=== PATIENT | female | born 1985 | race Caucasian/White ===

== ENCOUNTER 2017-08-16 23:16 | Emergency (ER) | payer OTHER ==
[~2017-08-16] VITALS: Ht 170.2 cm; Wt 135.4 kg
[~2017-08-16 23:16] MED LIST: MAGN400T6 PO; PRENTAB26 PO; VNTHFA/IN INH
[2017-08-16 23:30] VITALS: TEMP 36.9; Ht 170.2 cm; Wt 135.4 kg
[2017-08-17 00:08] LABS: BASO % 0.1 %; BASO ABS # 0.01 K/uL (0-0.2); EOS % 0.8 %; EOS ABS # 0.09 K/uL (0-0.5); HEMATOCRIT 36.3 % (37-47); HEMOGLOBIN 12.4 g/dL (12.0-16.0); IG# 0.03 K/uL (0.00-0.02); LYMPH % 26.9 %; LYMPH ABS # 2.95 K/uL (1.2-3.4); MEAN CELL VOLUME 89.6 fL (80-100); MEAN CORPUSCULAR HEMOGLOBIN 30.6 pg (25-34); MEAN CORPUSCULAR HGB CONC 34.2 g/dl (32-36); MEAN PLATELET VOLUME 10.2 fL (7.4-10.4); MONO % 4.8 %; MONO ABS # 0.53 K/uL (0.11-0.59); NEUT % 67.1 %; NEUT ABS # 7.35 K/uL (1.4-6.5); PLATELET COUNT 224 K/uL (130-400); RED CELL DISTRIBUTION WIDTH CV 14.2 % (11.5-14.5); RED CELL DISTRIBUTION WIDTH SD 46.3 fL (36.4-46.3); WHITE BLOOD COUNT 10.96 K/uL (4.8-10.8)
[2017-08-17 00:29] LABS: ALBUMIN 3.3 gm/dl (3.4-5.0); ALT/SGPT 28 U/L (12-78); AST/SGOT 13 U/L (15-37); BLOOD UREA NITROGEN 12 mg/dl (7-18); CALCIUM 8.8 mg/dl (8.5-10.1); CARBON DIOXIDE 28 mmol/L (21-32); GLUCOSE 144 mg/dl (70-99); POTASSIUM 3.8 mmol/L (3.5-5.1); SODIUM 138 mmol/L (136-145)
[2017-08-17 00:33] LABS: ALKALINE PHOSPHATASE 73 U/L (45-117); TOTAL PROTEIN 7.3 gm/dl (6.4-8.2)
[2017-08-17] MEDS ORDERED: ESCI1TAB10 PO (00:47)
[2017-08-17 01:08] VITALS: BP 149/103; PULSE 95; O2SAT 97
--- NOTE | 2017-08-17 01:13 | EMERGENCY ROOM VISIT NOTE ---
History First contact with patient: 23:35 Chief Complaint: SHOULDER PAIN Stated Complaint: TINGLING IN ARMS,SHOULDER, LEGS,ANXIETY History of Present Illness The patient is a 32 year old female who presents to the Emergency Room with multiple complaints. The patient reports that she has had nausea on and off for the past 1 week. She has additionally had frequent heartburn as well as tingling in both of her arms. She states that she has had some heaviness in both her arms or legs. The patient's symptoms have all been intermittent for the past 1 week. She states that tonight she felt very cold and had some pain in the left shoulder blade. She reports she has been more fatigued than normal. She denies shortness of breath, chest pain, fevers, headache or neck pain. She rates her overall discomfort a 2/10. She denies any new medications or changes in her medications. Her last menstrual period was approximately 5 weeks ago. She is not a smoker. She does not take control pills. She denies recent travel. Review of Systems A complete 10 point review of systems was reviewed with the patient with pertinent positives and negatives as per history of present illness. All else were negative. Past Medical/Surgical History Medical Problems: (1) Appendectomy (2) Bipolar disorder (3) Cramping affecting , antepartum (4) Gastroesophageal reflux disease (5) [place] Teeth Removal Social History Smoking Status: Never Smoker Alcohol Use: none Drug Use: none Marital Status: single Housing Status: lives with family Occupation Status: unemployed Current/Historical Medications Scheduled Escitalopram Oxalate (Lexapro), 20 MG PO DAILY Physical Exam Vital Signs Date Time Temp Pulse Resp B/P (MAP) Pulse Ox O2 Delivery O2 Flow Rate FiO2 08/17/17 01:08 95 16 149/103 97 Room Air 08/17/17 01:08 93 20 141/92 97 Room Air 08/16/17 23:30 36.9 113 20 98 Room Air Physical Exam VITALS: Vitals are noted on the nurse's note and reviewed by myself. Vital signs stable. GENERAL: This is a 32-year-old female, in no acute distress, nondiaphoretic, well-developed well-nourished. SKIN: The skin was without rashes. HEAD: Normocephalic atraumatic. EARS: External auditory canals clear, tympanic membranes pearly gerber without erythema or effusion bilaterally. EYES: Pupils equal round and reactive to light and accommodation. Extraocular movements intact. MOUTH: Mucous membranes moist. Tonsils are not enlarged. Pharynx without erythema or exudate. NECK: Supple without nuchal rigidity. No lymphadenopathy. HEART: Regular rate and rhythm without murmurs gallops or rubs. LUNGS: Clear to auscultation bilaterally without wheezes, rales or rhonchi. MUSCULOSKELETAL: Full range of motion throughout. Strength 5/5 throughout. NEURO: Patient was alert and oriented to person place and time. Normal sensation to light and sharp touch. No focal neurological deficits. Medical Decision & Procedures ER Provider Diagnostic Interpretation: CHEST 1 VIEW: No acute cardiopulmonary abnormality. Per my interpretation Laboratory Results 08/16/17 23:55 Red Blood Count 4.05, Mean Corpuscular Volume 89.6, Mean Corpuscular Hemoglobin 30.6, Mean Corpuscular Hemoglobin Concent 34.2, Mean Platelet Volume 10.2, Neutrophils (%) (Auto) 67.1, Lymphocytes (%) (Auto) 26.9, Monocytes (%) (Auto) 4.8, Eosinophils (%) (Auto) 0.8, Basophils (%) (Auto) 0.1, Neutrophils # (Auto) 7.35, Lymphocytes # (Auto) 2.95, Monocytes # (Auto) 0.53, Eosinophils # (Auto) 0.09, Basophils # (Auto) 0.01 08/16/17 23:55 Test 08/16/17 23:55 White Blood Count 10.96 K/uL (4.8-10.8) Red Blood Count 4.05 M/uL (4.2-5.4) Hemoglobin 12.4 g/dL (12.0-16.0) Hematocrit 36.3 % (37-47) Mean Corpuscular Volume 89.6 fL (80-100) Mean Corpuscular Hemoglobin 30.6 pg (25-34) Mean Corpuscular Hemoglobin Concent 34.2 g/dl (32-36) Platelet Count 224 K/uL (130-400) Mean Platelet Volume 10.2 fL (7.4-10.4) Neutrophils (%) (Auto) 67.1 % Lymphocytes (%) (Auto) 26.9 % Monocytes (%) (Auto) 4.8 % Eosinophils (%) (Auto) 0.8 % Basophils (%) (Auto) 0.1 % Neutrophils # (Auto) 7.35 K/uL (1.4-6.5) Lymphocytes # (Auto) 2.95 K/uL (1.2-3.4) Monocytes # (Auto) 0.53 K/uL (0.11-0.59) Eosinophils # (Auto) 0.09 K/uL (0-0.5) Basophils # (Auto) 0.01 K/uL (0-0.2) RDW Standard Deviation 46.3 fL (36.4-46.3) RDW Coefficient of Variation 14.2 % (11.5-14.5) Immature Granulocyte % (Auto) 0.3 % Immature Granulocyte # (Auto) 0.03 K/uL (0.00-0.02) D-Dimer 370 ug/L FEU (0-500) Urine Color YELLOW Urine Appearance CLEAR (CLEAR) Urine pH 5.5 (4.5-7.5) Urine Specific [place] 1.021 (1.000-1.030) Urine Protein NEG (NEG) Urine Glucose (UA) NEG (NEG) Urine Ketones NEG (NEG) Urine Occult Blood NEG (NEG) Urine Nitrite NEG (NEG) Urine Bilirubin NEG (NEG) Urine Urobilinogen NEG (NEG) Urine Leukocyte Esterase NEG (NEG) Urine Test NEG (NEG) Anion Gap 5.0 mmol/L (3-11) Est Creatinine Clear Calc Drug Dose 145.2 ml/min Estimated GFR () 113.1 Estimated GFR (Non- 97.6 BUN/Creatinine Ratio 15.4 (10-20) Calcium Level 8.8 mg/dl (8.5-10.1) Total Bilirubin 0.2 mg/dl (0.2-1) Aspartate Amino Transf (AST/SGOT) 13 U/L (15-37) Alanine Aminotransferase (ALT/SGPT) 28 U/L (12-78) Alkaline Phosphatase 73 U/L (45-117) Troponin I < 0.015 ng/ml (0-0.045) Total Protein 7.3 gm/dl (6.4-8.2) Albumin 3.3 gm/dl (3.4-5.0) Globulin 4.0 gm/dl (2.5-4.0) Albumin/Globulin Ratio 0.8 (0.9-2) ECG Per My Interpretation Indication: back/shoulder pain Rate (beats per minute): 94 Rhythm: normal sinus Findings: 1st degree AV block, no acute ischemic change, no ectopy Change: no significant change Medical Decision Differential diagnosis includes acute coronary syndrome, pulmonary embolism, pneumothorax, pericarditis, myocarditis, endocarditis, anxiety, musculoskeletal pain, GERD, costochondritis, pneumonia, electrolyte abnormality, among others. The patient is a 32-year-old female who presents today complaining of multiple complaints. Labs revealed no significant leukocytosis, anemia, or concerning electrolyte abnormalities. Urinalysis was not suggestive of infection. Urine was negative. EKG was interpreted by myself and shows normal sinus rhythm with 1st degree AV block. Troponin and D-dimer were not elevated. Chest x-ray unremarkable. Symptoms may be secondary to musculoskeletal pain, possible muscle spasm within the left shoulder/thoracic spine. She may also have a component of anxiety. She was advised to have close follow up with her PCP. The patient's case was reviewed with Dr. Valdez, ED attending physician, who agreed with my assessment and treatment plan. Based on the patient's presentation and work up, I feel the patient is stable for outpatient treatment. The patient was educated to return to the emergency department for any worsening of their current condition or new/concerning symptoms. She will follow up with her PCP. Medication Reconcilliation Current Medication List: was personally reviewed by me Blood Pressure Screening Patient's blood pressure: Elevated blood pressure Blood pressure disposition: Referred to PCP Impression Primary Impression: Numbness and tingling in both hands Departure Information Dispostion Home / Self-Care Condition GOOD Referrals No Doctor, Assigned (PCP) Patient Instructions My [facility] Additional Instructions You have been evaluated in the Emergency Department. Laboratory results and Imaging Studies have ruled out any cardiac or pulmonary cause of your chest pain. For pain control, you can use the following [id number] medicines (if >12 yo): - Regular strength (325mg/tab) Tylenol (acetaminophen) 2 tabs every 4-6 hours as needed. Do not exceed 12 tablets in a 24 hour period. Avoid taking more than 4 grams (4000 mg) of Tylenol per day. This includes any other sources of acetaminophen you may take on a regular basis. - Regular strength (200 mg/tab) Advil (ibuprofen) 1-2 tabs every 4-6 hours as needed. Do not exceed a dose of 3200 mg per day. You should schedule a follow-up appointment with your Primary Care Provider in 2 -3 days for further evaluation from today's Emergency Department visit. Return to the Emergency Department if your current symptoms worsen despite treatment course outlined above, or if you develop any of the following symptoms : worsening chest pain, associated jaw/arm pain, nausea, dizziness, shortness of breath, bloody cough, or fainting.
--- NOTE | 2017-08-17 07:03 | DIAGNOSTIC IMAGING REPORT ---
CHEST ONE VIEW PORTABLE CLINICAL HISTORY: left chest/back pain dyspnea COMPARISON STUDY: 03/31/2013 FINDINGS: The bones soft tissues and hemidiaphragms are normal. The cardiomediastinal silhouette is normal. The lungs are clear. The pulmonary vasculature is normal. IMPRESSION: Negative chest. The above report was generated using voice recognition software. It may contain grammatical, syntax or spelling errors. Electronically signed by: Kimo Alexandre M.D. 08/17/2017 7:02 AM Dictated Date/Time: 08/17/2017 7:01 AM
== END 2017-08-17 01:18 | disposition home or self-care (01) ==
LOC: C.EDB 23:17
DX: R20.0 Anesthesia of skin (principal); K21.9 Gastro-esophageal reflux disease without esophagitis; F17.210 Nicotine dependence, cigarettes, uncomplicated; Z79.3 Long term (current) use of hormonal contraceptives; F31.9 Bipolar disorder, unspecified; Z79.899 Other long term (current) drug therapy

== ENCOUNTER → 2017-09-07 | Day surgery (SDC) | payer OTHER ==
[2017-09-06 10:01] VITALS: Ht 170.2 cm; Wt 133.2 kg
[~2017-09-07] VITALS: Ht 170.2 cm; Wt 133.2 kg
[~2017-09-07] MED LIST changes: +CYM/30 PO; +DICY20TA10 PO; +LIDOCAINE HCL 2% 2 ML VIAL (20MG/ML) ONE; +LISI10TA PO; -MAGN400T6 PO; +MISCCAP80 PO; +MULT-240 PO; -PRENTAB26 PO; +PROC5TAB PO; +PROPOFOL IV EMULSION 10 MG/ML 20 ML VIAL ONE; +PRT/20 PO; +SODIUM CHLORIDE 0.9% 500ML 500 ML IV ONE; -VNTHFA/IN INH
--- NOTE | 2017-09-07 11:48 | Endo History and Physical ---
History & Physical Date of Service: September 07, 2017. Chief Complaint: Diarrhea Referring Physician: Evelyn Strickland History of Present Illness chronic diarrhea Past Surgical History Hx Cardiac Surgery: No Hx Internal Defibrillator: No Hx Pacemaker: No Hx Abdominal Surgery: Yes (APPY) Hx of Implantable Prosthesis: No Hx Post-Op Nausea and Vomiting: No Hx Cancer Surgery: No Hx Thoracic Surgery: No Hx Orthopedic: No Hx Urinary Tract Surgery: No Social History Smoking Status: Never Smoker Hx Substance Use: No Hx Alcohol Use: Yes (ONCE A MONTH) Allergies Coded Allergies: No Known Allergies (Unverified , 09/06/17) Current Medications Reported Home Medications Medications Dose Route/Sig Max Daily Dose Days Date Category Compazine (Prochlorperazine Maleate) 5 Mg Tab 5 Mg PO Q6 PRN 09/06/17 Reported Probiotic (Probiotic Product) 1 Cap Cap 1 Cap PO DAILY 09/06/17 Reported Protonix (Pantoprazole Sodium) 20 Mg Tab 20 Mg PO DAILY 09/06/17 Reported Womens One Daily (Multiple Vitamins W/ Minerals) 1 Tab Tab 1 Tab PO DAILY 09/06/17 Reported Prinivil (Lisinopril) 10 Mg Tab 10 Mg PO DAILY 09/06/17 Reported Cymbalta (Duloxetine HCl) 30 Mg Cap 1 Cap PO DAILY 30 09/06/17 Reported Dicyclomine Hcl 20 Mg Tab 1 Tab PO QID PRN 30 09/06/17 Reported Vital Signs Weight (Kilograms): 133.18 Height (Feet): 5 Height (Inches): 7 Date Time Temp Pulse Resp B/P (MAP) Pulse Ox O2 Delivery O2 Flow Rate FiO2 09/07/17 11:35 37.1 66 18 132/77 (95) 94 Room Air Physical Exam General Appearance: WD/WN, no apparent distress Assessment and Plan colonoscopy today
--- NOTE | 2017-09-07 12:21 | GI REPORT ---
Patient Name: Hoda Josue Procedure Date: 09/07/2017 11:40 AM Date of : 1985 Admit Type: Preadmit Age: 32 Gender: Female Attending MD: Nany Marshall DO Procedure: Colonoscopy Providers: Nany Marshall DO Referring MD: Evelyn Strickland Indications: Chronic diarrhea Medicines: Propofol per Anesthesia Complications: No immediate complications. Estimated blood loss: Minimal. Estimated Blood Loss: Estimated blood loss was minimal. Procedure: Pre-Anesthesia Assessment: - Prior to the procedure, a History and Physical was performed, and patient medications, allergies and sensitivities were reviewed. The patient's tolerance of previous anesthesia was reviewed. - The risks and benefits of the procedure and the sedation options and risks were discussed with the patient. All questions were answered and informed consent was obtained. - Patient identification and proposed procedure were verified prior to the procedure by the physician and the nurse. The procedure was verified in the pre-procedure area in the procedure room. - Mental Status Examination: alert and oriented. Airway Examination: normal oropharyngeal airway and neck mobility. Respiratory Examination: clear to auscultation. CV Examination: normal. Abdominal Examination: bowel sounds present, abdomen soft and non-tender, no masses or organomegaly noted. - ASA Grade Assessment: II - A patient with mild systemic disease. After I obtained informed consent, the scope was passed under direct vision. Throughout the procedure, the patient's blood pressure, pulse, and oxygen saturations were monitored continuously. The scope was introduced through the anus and advanced to the terminal ileum. The colonoscopy was performed without difficulty. The patient tolerated the procedure well. The quality of the bowel preparation was good. Findings: The perianal and digital rectal examinations were normal. Pertinent negatives include normal sphincter tone and no palpable rectal lesions. The terminal ileum appeared normal. The colon (entire examined portion) appeared normal. Biopsies for histology were taken with a cold forceps from the right colon and left colon for evaluation of microscopic colitis. Verification of patient identification for the specimen was done by the physician and nurse using the patient's name and date. Estimated blood loss was minimal. The retroflexed view of the distal rectum and anal verge was normal and showed no anal or rectal abnormalities. Impression: - The examined portion of the ileum was normal. - The entire examined colon is normal. Biopsied. - The distal rectum and anal verge are normal on retroflexion view. Recommendation: - Await pathology results. - Return to referring physician as previously scheduled. - Discharge patient to home. Nany Marshall D.O. Nany Marshall DO 09/07/2017 12:20:57 PM This report has been signed electronically. Note Initiated On: 09/07/2017 11:40 AM Number of Addenda: 0 I attest to the content of the Intraoperative Record and orders documented therein, exceptions below {[id number]}
[2017-09-07 12:47] VITALS: BP 124/82; PULSE 61; O2SAT 98
--- NOTE | 2017-09-07 12:54 | Discharge Instructions ---
Endoscopy Patient Instructions Date / Procedure(s) Performed September 07, 2017. Colonoscopy Allergy Information Coded Allergies: No Known Allergies (Unverified , 09/06/17) Discharge Date / Findings September 07, 2017. normal colon Medication Instructions Restart Stopped Medication(s): OK to resume all home medications as above Provider Instructions Activity Restrictions - No exercising or heavy lifting for 24 hours. - Do not drink alcohol the day of the procedure. - Do not drive a car or operate machinery until the day after the procedure. - Do not make any important decisions or sign important papers in 24 hours after the procedure. Following Day: - Return to full activity which may include returning to work/school. Diet Start your diet with liquids and light foods (jello, soup, juice, toast). Then eat your usual diet if not nauseated. Treatment For Common After Affects For mild abdominal pain, bloating, or excessive gas: - Rest - Eat lightly - Lie on right side Follow-Up Information Follow-up with Evelyn Strickland as scheduled Anesthesia Information What You Should Know You have had a procedure that required some medicine to reduce anxiety and discomfort. This treatment is called moderate sedation. After receiving the treatment, you may be sleepy, but you will be able to breathe on your own. The effects of the treatment may last for several hours. Follow these instructions along with Activity/Diet recommendations noted above: * Do NOT do anything where dizziness or clumsiness would be dangerous. * Rest quietly at home today, then you can be up and about tomorrow. * Have a responsible person stay with you the rest of today. * You may have had an I.V. today. If so, you may take the dressing off later today. Recommendations Call your doctor if: * Trouble breathing * Continuous vomiting for more than 24 hours * Temperature above 101 degrees * Severe abdominal pain or bloating * Pain not relieved by pain medicine ordered * There is increased drainage or redness from any incision * A large amount of rectal bleeding greater than 2-3 tablespoons. (If you had a polyp/s removed or have hemorrhoids, a small amount of blood - from the rectum is to be expected.) * You have any unanswered questions or concerns. IN THE EVENT OF A SERIOUS EMERGENCY, GO TO THE NEAREST EMERGENCY ROOM Your discharge instructions were prepared by provider Nany Marshall. Patient Instructions Signature Page Hoda Josue Patient (or Guardian) Signature/Date: I have read and understand the instructions given to me by my caregivers. Caregiver/RN/Doctor Signature/Date: The above-named patient and/or guardian has received patient instructions on this date. + Original Patient Signature Page (only) stays with chart. Please make copy for patient.
--- NOTE | 2017-09-07 13:03 | Anesthesiology Progress Note ---
Anesthesia Post Op Note Date & Time September 07, 2017 at 13:02 Vital Signs Pain Intensity: 0 Vital Signs Past 12 Hours Date Time Temp Pulse Resp B/P (MAP) Pulse Ox O2 Delivery O2 Flow Rate FiO2 09/07/17 12:47 61 18 124/82 (96) 98 Room Air 09/07/17 12:32 60 16 120/74 (89) 97 Room Air 09/07/17 12:17 67 18 106/63 (77) 98 Room Air 09/07/17 11:35 37.1 66 18 132/77 (95) 94 Room Air Notes Mental Status: alert / awake / arousable, participated in evaluation Pt Amnestic to Procedure: Yes Nausea / Vomiting: adequately controlled Pain: adequately controlled Airway Patency, RR, SpO2: stable & adequate BP & HR: stable & adequate Hydration State: stable & adequate Anesthetic Complications: no major complications apparent
== END | disposition home or self-care (01) ==
LOC: C.GI 11:17
PROVIDERS: ATTEND Internal Medicine
DX: R19.7 Diarrhea, unspecified (principal); I10 Essential (primary) hypertension; K21.9 Gastro-esophageal reflux disease without esophagitis; E66.9 Obesity, unspecified; Z68.42 Body mass index [BMI] 45.0-49.9, adult; Z90.49 Acquired absence of other specified parts of digestive tract

== ENCOUNTER 2020-10-17 18:14 | Inpatient (IN) ==
[2020-10-17] MEDS ORDERED: SODIUM CHLORIDE 0.9% 1000ML 1,000 ML IV SCH (18:30)
[2020-10-17 18:51] LABS: Basophils # (auto) 0.02 K/uL (0-0.2); Basophils % (auto) 0.2 %; Eosinophils # (auto) 0.06 K/uL (0-0.5); Eosinophils % (auto) 0.5 %; Hematocrit (blood only) 37.5 % (37-47); Hemoglobin 12.3 g/dL (12.0-16.0); Immature Granulocytes # (auto) 0.02 K/uL (0.00-0.02); Immature Granulocytes % (auto) 0.2 %; Lymphocytes # (auto) 3.75 K/uL (1.2-3.4); Lymphocytes % (auto) 28.2 %; Mean Corpuscular Hemoglobin 29.7 pg (25-34); Mean Corpuscular Hgb Conc 32.8 g/dL (32-36); Mean Corpuscular Volume 90.6 fL (80-100); Mean Platelet Volume 10.5 fL (7.4-10.4); Monocytes % (auto) 4.5 %; Neutrophils # (auto) 8.83 K/uL (1.4-6.5); Neutrophils % (auto) 66.4 %; Platelet Count 235 K/uL (130-400); RDW Coefficient of Variation 14.7 % (11.5-14.5); RDW Standard Deviation 49.2 fL (36.4-46.3); Red Blood Count 4.14 M/uL (4.2-5.4); White Blood Count 13.28 K/uL (4.8-10.8)
--- NOTE | 2020-10-17 18:51 | Emergency Department Note ---
History of Present Illness General Chief complaint: Arrhythmia/Palpitations Stated complaint: HEART PALPITATIONS, HIGH BLOOD PRESSURE Time Seen by Provider: 10/17/20 18:21 Source: patient Mode of arrival: ambulatory Limitations: no limitations History of Present Illness Provider complaint: Palpitations, chest pain Onset (ago): hour(s) 4 Location: chest Radiation: non-radiation Severity: mild Pain Consistency: + colicky Maximum Pain Intensity: 4 Quality: + dull Relieved By: + none Exacerbated By: + none Associated symptoms: + shortness of breath Treatments prior to arrival: none This is a 35-year-old female presents emergency department with complaints of palpitations, chest discomfort, and elevated blood pressure. Patient states she was seated at home around 3 PM when she first noticed the chest discomfort and palpitations. Secondary to this she decided to check her blood pressure which was very elevated at home compared to normal. She states has a history of high blood pressure and does take medication daily. No recent missed or skipped doses. No recent change in her meds. Patient denies any recent illness. States this morning she felt in her usual state of health. States no change in her caffeine consumption, no recent alcohol use. No recent illness, fevers, or URI symptoms. No use of OTC allergy or sinus medication. Patient states she does feel that she drinks adequate amount of moderate. She states she is active and hikes regularly. Has not noticed any recent insect or tick bites. Patient denies any history of kidney problems. No recent lower extremity edema. Patient was to some mild diarrhea today, no blood noted. No recent change in urine. She denies any current chest pain, palpitations. States earlier she did feel slightly short of breath when her symptoms evolved, no shortness of breath at this time. No dizziness/lightheadedness. Pt seen during a time of high acuity and national emergency pandemic while wearing PPE. Home Medications Medication Instructions Recorded Confirmed Type Women's One Daily 1 tab PO DAILY #0 09/06/17 10/17/20 History Trintellix 5 mg PO DAILY 10/17/20 10/17/20 History aripiprazole [Abilify] 5 mg PO DAILY 10/17/20 10/17/20 History metoprolol succinate 25 mg PO DAILY 10/17/20 10/17/20 History lisinopril 10 mg PO DAILY #30 tab 10/18/20 Rx Allergies Allergy/AdvReac Type Severity Reaction Status Date / Time No Known Allergies Allergy Verified 10/17/20 19:08 Past Med/Surg History Medical History (Updated 10/18/20 @ 20:49 by Alisa Sullivan DO) Depression Hypertension Surgical History No significant past surgical history Family History Other No significant family history Social History Smoking Status: Never smoker Hx Alcohol Use: Yes Alcohol type: hard liquor Hx Substance Use: No Preferred Language: Micronesian Communication Ability: Effective Waste Collection Driver Required: No Beliefs That Will Affect Care: None marital status: Single Current Living Situation: Spouse and Family Current Living Situation Comment: Lives with boyfreind and child current occupational status: unemployed Other Information That Helps Us Care for You: No Feels Safe at Home: Yes Safety Concerns: Feels Safe At This Time Assistive Devices: Glasses Review of Systems See HPI for pertinent positives & negatives. and A total of 10 systems reviewed and were otherwise negative Physical Exam Vital Signs Vital Signs - 24 hr 10/17/20 20:50 10/17/20 21:00 10/17/20 21:10 Pulse Rate 82 82 83 Pulse Rate from SpO2 Sensor 81 85 83 Respiratory Rate 29 H 18 27 H Blood Pressure 225/128 H Blood Pressure Mean 160 Pulse Oximetry 99 100 100 10/17/20 21:22 10/17/20 21:30 10/17/20 21:42 Pulse Rate 76 Pulse Rate from SpO2 Sensor Respiratory Rate 24 Blood Pressure 202/108 H 193/121 H Blood Pressure Mean 139 145 Pulse Oximetry 10/17/20 21:50 10/17/20 21:53 10/17/20 22:00 Pulse Rate 74 79 72 Pulse Rate from SpO2 Sensor 75 76 72 Respiratory Rate 29 H 26 H 30 H Blood Pressure 182/117 H 200/109 H Blood Pressure Mean 138 139 Pulse Oximetry 96 98 98 10/17/20 22:10 10/17/20 22:12 10/17/20 22:20 Pulse Rate 73 73 72 Pulse Rate from SpO2 Sensor 72 74 72 Respiratory Rate 32 H 23 21 Blood Pressure 173/91 H Blood Pressure Mean 118 Pulse Oximetry 98 97 97 10/17/20 22:30 10/17/20 22:40 10/17/20 22:50 Pulse Rate 74 75 75 Pulse Rate from SpO2 Sensor 75 75 75 Respiratory Rate 21 30 H 15 Blood Pressure 204/111 H Blood Pressure Mean 142 Pulse Oximetry 97 97 97 10/17/20 23:18 10/17/20 23:30 Pulse Rate 72 70 Pulse Rate from SpO2 Sensor Respiratory Rate 21 17 Blood Pressure 162/90 H 158/88 H Blood Pressure Mean 114 111 Pulse Oximetry 97 98 GENERAL: alert, well appearing, well nourished, no distress, non-toxic, BMI>40 EYE EXAM: normal conjunctiva, PERRL and EOM's grossly intact OROPHARYNX: no exudate, no erythema, lips, buccal mucosa, and tongue normal and mucous membranes are moist NECK: supple, no nuchal rigidity, no adenopathy, non-tender LUNGS: Clear to auscultation. Normal chest wall mechanics, no w/r/r HEART: no murmurs, S1 normal and S2 normal, no reproducible chest wall tenderness ABDOMEN: abdomen soft, non-tender, normo-active bowel sounds, no masses, no rebound or guarding. BACK: Back is symmetrical on inspection and there is no deformity, no midline tenderness, no CVA tenderness. SKIN: no rashes and no bruising UPPER EXTREMITIES: upper extremities are grossly normal. FROM, nml pulses b/l. LOWER EXTREMITIES: No pitting edema. FROM, nml pulses b/l. NEURO EXAM: Normal sensorium, cranial nerves II-XII grossly intact, normal speech, no gross weakness of arms, no gross weakness of legs. Gross sensation intact. Course Course 2019: Patient states she is still having chest pain. Blood pressure has improved on its own. No recurrent signs of palpitations. 2124: Blood pressure now trending back up and patient worsening pain despite prior medications given. Discussed inpatient management as a precaution. Labetalol ordered. Patient verbalized understanding and in agreement. 2132: Case discussed with Dr. Manley. Administered Medications Discontinued Medications Acetaminophen (Acetaminophen 325 Mg Tab) 650 mg PO Q4H PRN PRN Reason: Pain or Fever Stop: 11/17/20 00:57 Last Admin: 10/18/20 01:49 Dose: 650 mg Documented by: [id number] Aripiprazole (Aripiprazole 5 Mg Tab) 5 mg PO DAILY [facility] Stop: 11/17/20 08:59 Last Admin: 10/18/20 12:09 Dose: 5 mg Documented by: [id number] Aspirin (Aspirin 81 Mg Ectab) 81 mg PO QAM [facility] Stop: 11/16/20 23:49 Last Admin: 10/18/20 00:06 Dose: 81 mg Documented by: [id number] Enoxaparin Sodium (Enoxaparin Inj 40 Mg/0.4 Ml Syr) 40 mg SQ QAM [facility] Stop: 11/17/20 08:59 Last Admin: 10/18/20 12:09 Dose: Not Given Documented by: [id number] Famotidine (Famotidine 20mg/5ml Iv Push) 20 mg IV ONE STA Stop: 10/17/20 20:23 Last Admin: 10/17/20 20:38 Dose: 20 mg Documented by: [id number] Hydralazine HCl (Hydralazine Hcl 20 Mg/Ml Vial) 5 mg IV NOW ONE Stop: 10/17/20 23:14 Last Admin: 10/17/20 23:45 Dose: Not Given Documented by: [id number] Sodium Chloride (Nss 1000ml) 1,000 mls @ 250 mls/hr IV .Q4H [facility] Stop: 11/16/20 18:29 Last Infusion: 10/17/20 22:57 Dose: 250 mls/hr Documented by: [id number] Admin: 10/17/20 18:41 Dose: 250 mls/hr Documented by: [id number] Acetaminophen (Ofirmev) 1,000 mg in 100 mls @ 400 mls/hr IV NOW STA Stop: 10/17/20 20:36 Last Infusion: 10/17/20 21:05 Dose: 400 mls/hr Documented by: [id number] Admin: 10/17/20 20:38 Dose: 400 mls/hr Documented by: [id number] Potassium Chloride/Sodium Chloride (Normal Saline W/20 Meq Kcl) 20 meq in 1,000 mls @ 40 mls/hr IV .Q24H [facility] Stop: 11/17/20 01:29 Last Infusion: 10/18/20 10:00 Dose: 0 mls/hr Documented by: [id number] Admin: 10/18/20 01:50 Dose: 40 mls/hr Documented by: [id number] Promethazine HCl 12.5 mg/ (Sodium Chloride) 50.5 mls @ 202 mls/hr IV Q6H PRN PRN Reason: Nausea And Vomiting Stop: 11/17/20 00:57 Last Infusion: 10/18/20 04:06 Dose: 0 mls/hr Documented by: [id number] Admin: 10/18/20 01:47 Dose: 202 mls/hr Documented by: [id number] Ketorolac Tromethamine (Ketorolac Tromethamine 15 Mg/Ml Vial) 10 mg IV NOW ONE Stop: 10/17/20 20:23 Last Admin: 10/17/20 20:38 Dose: 10 mg Documented by: [id number] Labetalol HCl (Labetalol Hcl Iv 5 Mg/Ml 20ml) 10 mg IV NOW STA Stop: 10/17/20 21:27 Last Admin: 10/17/20 21:43 Dose: 10 mg Documented by: [id number] Cosigned by: [id number] Labetalol HCl (Labetalol Hcl Iv 5 Mg/Ml 20ml) 10 mg IV NOW STA Stop: 10/17/20 23:14 Last Admin: 10/17/20 23:52 Dose: Not Given Documented by: [id number] Lisinopril (Lisinopril 5 Mg Tab) 5 mg PO NOW ONE Stop: 10/17/20 21:43 Last Admin: 10/17/20 21:53 Dose: 5 mg Documented by: [id number] Lisinopril (Lisinopril 5 Mg Tab) 5 mg PO NOW ONE Stop: 10/17/20 23:06 Last Admin: 10/17/20 23:45 Dose: Not Given Documented by: [id number] Lisinopril (Lisinopril 10 Mg Tab) 10 mg PO DAILY [facility] Stop: 11/17/20 08:59 Last Admin: 10/18/20 12:08 Dose: 10 mg Documented by: [id number] Metoprolol Succinate (Metoprolol Succ 25mg Ext Rel Tab) 25 mg PO DAILY [facility] Stop: 11/17/20 08:59 Last Admin: 10/18/20 12:08 Dose: 25 mg Documented by: [id number] Admin: 10/18/20 09:40 Dose: Not Given Documented by: [id number] Miscellaneous (Vortioxetine [Trintellix]: Order Awaiting Action) 1 ea N/A QS [facility] Stop: 11/17/20 07:59 Last Admin: 10/18/20 07:28 Dose: Not Given Documented by: [id number] Multivitamins/Minerals (Cerovite Adv Formula Tab) 1 tab PO DAILY [facility] Stop: 11/17/20 08:59 Last Admin: 10/18/20 12:09 Dose: 1 tab Documented by: [id number] Nitroglycerin (Nitroglycerin 2% Ointment 30gm Tube) 1 inch EXT NOW STA Stop: 10/17/20 21:29 Last Admin: 10/17/20 21:42 Dose: 1 inch Documented by: [id number] Potassium Chloride (Potassium Chloride Crtab 20 Meq Tabcr) 40 meq PO NOW STA Stop: 10/17/20 19:50 Last Admin: 10/17/20 19:55 Dose: 40 meq Documented by: [id number] Medical Decision Making Differential Diagnosis Differential diagnosis includes etiologies such as premature contractions, electrolyte abnormality, cardiac dysrhythmia, thyroid dysfunction, pulmonary embolism, infection, gastrointestinal, as well as others were entertained. Medical Records Attestation: I reviewed the patient's medical records. Home Medications Current Medication List: was personally reviewed by me Laboratory Data Attestation: I reviewed the patient's lab results. Result diagrams: 10/18/20 05:20 10/18/20 05:20 Lab Results 10/17/20 10/17/20 10/17/20 Range/Units 18:39 18:39 18:39 WBC 13.28 H (4.8-10.8) K/uL RBC 4.14 L (4.2-5.4) M/uL Hgb 12.3 (12.0-16.0) g/dL Hct 37.5 (37-47) % MCV 90.6 (80-100) fL MCH 29.7 (25-34) pg MCHC 32.8 (32-36) g/dL RDW Std Deviation 49.2 H (36.4-46.3) fL RDW Coeff of Rigoberto 14.7 H (11.5-14.5) % Plt Count 235 (130-400) K/uL MPV 10.5 H (7.4-10.4) fL Immature Gran % (Auto) 0.2 % Neut % (Auto) 66.4 % Lymph % (Auto) 28.2 % Coleman % (Auto) 4.5 % Eos % (Auto) 0.5 % Baso % (Auto) 0.2 % Neut # (Auto) 8.83 H (1.4-6.5) K/uL Lymph # (Auto) 3.75 H (1.2-3.4) K/uL Coleman # (Auto) 0.60 H (0.11-0.59) K/uL Eos # (Auto) 0.06 (0-0.5) K/uL Baso # (Auto) 0.02 (0-0.2) K/uL Immature Gran # (Auto) 0.02 (0.00-0.02) K/uL APTT (21.0-31.0) Seconds PTT Ratio D-Dimer (0-500) ug/L FEU Sodium 139 (136-145) mmol/L Potassium 3.6 (3.5-5.1) mmol/L Chloride 108 H (98-107) mmol/L Carbon Dioxide 24 (21-32) mmol/L Anion Gap 7.0 (3-11) BUN 19 H (7-18) mg/dl Creatinine 0.81 (0.6-1.2) mg/dl Est Cr Clr Drug Dosing Not Reportable Est GFR ( Amer) 109.1 ml/min Est GFR (Non-Af Amer) 94.1 ml/min BUN/Creatinine Ratio 22.8 H (10-20) Glucose 102 H (70-99) mg/dl Calcium 8.8 (8.5-10.1) mg/dl Magnesium 2.2 (1.8-2.4) mg/dl Total Bilirubin 0.2 (0.2-1) mg/dl AST 15 (15-37) U/L ALT 32 (12-78) U/L Alkaline Phosphatase 70 (45-117) U/L Troponin I < 0.015 (0-0.045) ng/ml NT-Pro-B Natriuret Pep 62 (0-450) pg/ml Total Protein 7.3 (6.4-8.2) gm/dl Albumin 3.4 (3.4-5.0) gm/dl Globulin 3.9 (2.5-4.0) gm/dl Albumin/Globulin Ratio 0.9 (0.9-2) TSH 1.580 (0.300-4.500) uIu/ml HCG, Qual (Negative) Urine Color Urine Appearance (Clear) Urine pH (4.5-7.5) Ur Specific [place] (1.000-1.030) Urine Protein (Negative) Urine Glucose (UA) (Negative) Urine Ketones (Negative) Urine Blood (Negative) Urine Nitrite (Negative) Urine Bilirubin (Negative) Urine Urobilinogen (Negative) Ur Leukocyte Esterase (Negative) Urine Opiates Screen (Neg) Ur Methadone, Qual (Neg) Urine Barbiturates (Neg) Ur Phencyclidine (PCP) (Neg) U Amphetamin/Meth Scrn (Neg) MDMA (Ecstasy) Screen (Neg) U Benzodiazepines Scrn (Neg) Ur Cocaine Metabolite (Neg) U Marijuana (THC) Screen (Neg) Lyme Disease IgG Ab Negative (Negative) Lyme Disease IgM Ab Negative (Negative) COVID-19 Eval Order SARS-CoV-2 (PCR) (Negative) 10/17/20 10/17/20 10/17/20 Range/Units 18:39 19:08 19:27 WBC (4.8-10.8) K/uL RBC (4.2-5.4) M/uL Hgb (12.0-16.0) g/dL Hct (37-47) % MCV (80-100) fL MCH (25-34) pg MCHC (32-36) g/dL RDW Std Deviation (36.4-46.3) fL RDW Coeff of Rigoberto (11.5-14.5) % Plt Count (130-400) K/uL MPV (7.4-10.4) fL Immature Gran % (Auto) % Neut % (Auto) % Lymph % (Auto) % Coleman % (Auto) % Eos % (Auto) % Baso % (Auto) % Neut # (Auto) (1.4-6.5) K/uL Lymph # (Auto) (1.2-3.4) K/uL [place] # (Auto) (0.11-0.59) K/uL Eos # (Auto) (0-0.5) K/uL Baso # (Auto) (0-0.2) K/uL Immature Gran # (Auto) (0.00-0.02) K/uL APTT 22.4 (21.0-31.0) Seconds PTT Ratio 0.9 D-Dimer 300 (0-500) ug/L FEU Sodium (136-145) mmol/L Potassium (3.5-5.1) mmol/L Chloride (98-107) mmol/L Carbon Dioxide (21-32) mmol/L Anion Gap (3-11) BUN (7-18) mg/dl Creatinine (0.6-1.2) mg/dl Est Cr Clr Drug Dosing Est GFR ( Amer) ml/min Est GFR (Non-Af Amer) ml/min BUN/Creatinine Ratio (10-20) Glucose (70-99) mg/dl Calcium (8.5-10.1) mg/dl Magnesium (1.8-2.4) mg/dl Total Bilirubin (0.2-1) mg/dl AST (15-37) U/L ALT (12-78) U/L Alkaline Phosphatase (45-117) U/L Troponin I (0-0.045) ng/ml NT-Pro-B Natriuret Pep (0-450) pg/ml Total Protein (6.4-8.2) gm/dl Albumin (3.4-5.0) gm/dl Globulin (2.5-4.0) gm/dl Albumin/Globulin Ratio (0.9-2) TSH (0.300-4.500) uIu/ml HCG, Qual Negative (Negative) Urine Color Yellow Urine Appearance Clear (Clear) Urine pH 5.5 (4.5-7.5) Ur Specific [place] 1.022 (1.000-1.030) Urine Protein Negative (Negative) Urine Glucose (UA) Negative (Negative) Urine Ketones Negative (Negative) Urine Blood Negative (Negative) Urine Nitrite Negative (Negative) Urine Bilirubin Negative (Negative) Urine Urobilinogen Negative (Negative) Ur Leukocyte Esterase Negative (Negative) Urine Opiates Screen (Neg) Ur Methadone, Qual (Neg) Urine Barbiturates (Neg) Ur Phencyclidine (PCP) (Neg) U Amphetamin/Meth Scrn (Neg) MDMA (Ecstasy) Screen (Neg) U Benzodiazepines Scrn (Neg) Ur Cocaine Metabolite (Neg) U Marijuana (THC) Screen (Neg) Lyme Disease IgG Ab (Negative) Lyme Disease IgM Ab (Negative) COVID-19 Eval Order SARS-CoV-2 (PCR) (Negative) 10/17/20 10/17/20 10/17/20 Range/Units 19:27 21:55 21:55 WBC (4.8-10.8) K/uL RBC (4.2-5.4) M/uL Hgb (12.0-16.0) g/dL Hct (37-47) % MCV (80-100) fL MCH (25-34) pg MCHC (32-36) g/dL RDW Std Deviation (36.4-46.3) fL RDW Coeff of Rigoberto (11.5-14.5) % Plt Count (130-400) K/uL MPV (7.4-10.4) fL Immature Gran % (Auto) % Neut % (Auto) % Lymph % (Auto) % Coleman % (Auto) % Eos % (Auto) % Baso % (Auto) % Neut # (Auto) (1.4-6.5) K/uL Lymph # (Auto) (1.2-3.4) K/uL Coleman # (Auto) (0.11-0.59) K/uL Eos # (Auto) (0-0.5) K/uL Baso # (Auto) (0-0.2) K/uL Immature Gran # (Auto) (0.00-0.02) K/uL APTT (21.0-31.0) Seconds PTT Ratio D-Dimer (0-500) ug/L FEU Sodium (136-145) mmol/L Potassium (3.5-5.1) mmol/L Chloride (98-107) mmol/L Carbon Dioxide (21-32) mmol/L Anion Gap (3-11) BUN (7-18) mg/dl Creatinine (0.6-1.2) mg/dl Est Cr Clr Drug Dosing Est GFR ( Amer) ml/min Est GFR (Non-Af Amer) ml/min BUN/Creatinine Ratio (10-20) Glucose (70-99) mg/dl Calcium (8.5-10.1) mg/dl Magnesium (1.8-2.4) mg/dl Total Bilirubin (0.2-1) mg/dl AST (15-37) U/L ALT (12-78) U/L Alkaline Phosphatase (45-117) U/L Troponin I (0-0.045) ng/ml NT-Pro-B Natriuret Pep (0-450) pg/ml Total Protein (6.4-8.2) gm/dl Albumin (3.4-5.0) gm/dl Globulin (2.5-4.0) gm/dl Albumin/Globulin Ratio (0.9-2) TSH (0.300-4.500) uIu/ml HCG, Qual (Negative) Urine Color Urine Appearance (Clear) Urine pH (4.5-7.5) Ur Specific [place] (1.000-1.030) Urine Protein (Negative) Urine Glucose (UA) (Negative) Urine Ketones (Negative) Urine Blood (Negative) Urine Nitrite (Negative) Urine Bilirubin (Negative) Urine Urobilinogen (Negative) Ur Leukocyte Esterase (Negative) Urine Opiates Screen Neg (Neg) Ur Methadone, Qual Neg (Neg) Urine Barbiturates Neg (Neg) Ur Phencyclidine (PCP) Neg (Neg) U Amphetamin/Meth Scrn Neg (Neg) MDMA (Ecstasy) Screen Neg (Neg) U Benzodiazepines Scrn Neg (Neg) Ur Cocaine Metabolite Neg (Neg) U Marijuana (THC) Screen Neg (Neg) Lyme Disease IgG Ab (Negative) Lyme Disease IgM Ab (Negative) COVID-19 Eval Order Covid19 at [facility] SARS-CoV-2 (PCR) NEGATIVE (Negative) Imaging Data Radiologist's Impression: Chest X-Ray 10/17/20 18:22 XR chest 1V portable CLINICAL HISTORY: palpitations COMPARISON STUDY: July 05, 2019 FINDINGS: No pneumothorax. No pleural effusion. No large infiltrates or consolidative lesions are seen. Lung volumes are decreased with crowded lung markings. Cardiomediastinal silhouette is within normal limits in size. No significant pulmonary vascular congestion.. Osseous structures: unremarkable IMPRESSION: 1. No acute pulmonary process. Limited evaluation due to low inspiratory effort. ACT 112: Negative or not required by law. The above report was generated using voice recognition software. It may contain grammatical, syntax or spelling errors. Electronically signed by: Adrienne Billy DO 10/17/2020 7:32 PM ECG Data Attestation: I personally reviewed and interpreted this ECG as follows: Indication: + chest pain Rate (beats per minute): 77 Rhythm: + normal sinus ECG Intervals/blocks: + First degree AV block, + Normal QRS and + Normal QT ECG [place]: + Normal ECG ST segments: + Normal ST segments Blood Pressure Blood Pressure Findings: Elevated blood pressure Blood Pressure Disposition: further management by hospitalist ALVARO Jackson This is a 35-year-old female with a history of hypertension who presents due to concern for worsening hypertension and chest pain. Patient did have mild headache and lightheadedness initially although those had resolved by the time of arrival. Patient's initial blood pressures markedly elevated at 200s over 100s. These did not begin to trend down on their own without intervention. Patient then given additional medication for pain which did not help. Patient's blood pressure then began to trend back up. Patient denied skipping any doses of her meds or any recent adjustment. Denied dietary indiscretion. No history of trauma. Patient's labs reassuring. Chest x-ray reassuring. I do not suspect dissection, thoracic aneurysm, tamponade, pericarditis/myocarditis, or PE. I do not suspect ACS, negative troponin and no EKG changes. No evidence of hypertensive emergency. TSH normal. Patient's blood pressure did respond to labetalol appropriately. I did discuss with her not dropping her too far too fast which she verbalized understanding to. Patient has not had a prior echo or stress test. No significant family history of young onset CAD or sudden cardiac . Due to concern for recurrent significant blood pressure elevatio n and recurrent chest pain, case discussed with hospitalist for additional evaluation and management. Discussed with patient unclear if this is hypertensive urgency or if her blood pressure is reacting to her pain which may be from an alternative etiology. No evidence of acute infectious etiology at this time. Mild leukocytosis was noted, unclear if this is reactive, or from evolving infectious process. An order was placed for continuous cardiac monitoring. The monitor shows a rate of _82_ with normal sinus rhythm. Impression & Plan Chest pain, Hypertension Discharge Plan Visit Data Chief Complaint: Arrhythmia/Palpitations Stated Complaint: HEART PALPITATIONS, HIGH BLOOD PRESSURE ED Provider: Alisa Sullivan Discharge Problem: Chest pain, Hypertension Patient Disposition: Admitted As Inpatient Discharge Instructions Interventions: ED Discharge Assessment Last Done: 10/18/20 00:20 Discharge Problem: Chest pain Qualifiers: Chest pain type: unspecified Qualified Code(s): R07.9 - Chest pain, unspecified Hypertension Qualifiers: Hypertension type: essential hypertension Qualified Code(s): I10 - Essential (primary) hypertension
[2020-10-17 19:11] LABS: Alanine Aminotransferase 32 U/L (12-78); Albumin Level 3.4 gm/dl (3.4-5.0); Aspartate Aminotransferase 15 U/L (15-37); BUN Creatinine Ratio 22.8 (10-20); Blood Urea Nitrogen 19 mg/dl (7-18); Calcium 8.8 mg/dl (8.5-10.1); Carbon Dioxide 24 mmol/L (21-32); Chloride 108 mmol/L (98-107); Est GFR (African American) 109.1 ml/min; Est GFR (Non-African American) 94.1 ml/min; Glucose 102 mg/dl (70-99); Magnesium 2.2 mg/dl (1.8-2.4); Potassium 3.6 mmol/L (3.5-5.1); Sodium 139 mmol/L (136-145)
[2020-10-17 19:21] LABS: Albumin Globulin Ratio 0.9 (0.9-2); Alkaline Phosphatase 70 U/L (45-117); Bilirubin,Total 0.2 mg/dl (0.2-1); Globulin 3.9 gm/dl (2.5-4.0); NT Pro B Type Natriuretic Pept 62 pg/ml (0-450); Total Protein 7.3 gm/dl (6.4-8.2); Troponin I < 0.015 ng/ml (0-0.045)
[2020-10-17 19:32] LABS: D Dimer 300 ug/L FEU (0-500)
--- NOTE | 2020-10-17 19:33 | XRay Report ---
XR chest 1V portable CLINICAL HISTORY: palpitations COMPARISON STUDY: July 05, 2019 FINDINGS: No pneumothorax. No pleural effusion. No large infiltrates or consolidative lesions are seen. Lung volumes are decreased with crowded lung markings. Cardiomediastinal silhouette is within normal limits in size. No significant pulmonary vascular congestion.. Osseous structures: unremarkable IMPRESSION: 1. No acute pulmonary process. Limited evaluation due to low inspiratory effort. ACT 112: Negative or not required by law. The above report was generated using voice recognition software. It may contain grammatical, syntax o r spelling errors. Electronically signed by: Adrienne Billy DO 10/17/2020 7:32 PM
[2020-10-17 19:42] LABS: Lyme Ab IgG w/WB Rflx Negative (Negative); Lyme Ab IgM w/WB Rflx Negative (Negative)
[2020-10-17] MEDS ORDERED: POTASSIUM CHLORIDE CRTAB 20 MEQ TABCR PO STA (19:49)
[2020-10-17] MEDS ORDERED: KETOROLAC TROMETHAMINE 15 MG/ML VIAL IV ONE (20:22)
[2020-10-17] MEDS ORDERED: FAMOTIDINE 20MG/5ML IV PUSH IV STA (20:22)
[2020-10-17] MEDS ORDERED: ACETAMINOPHEN 1,000 MG/100 ML VIAL IV STA (20:22)
[2020-10-17] MEDS ORDERED: LABETALOL HCL IV 5 MG/ML 20ML IV STA ×2 (21:26→23:13)
[2020-10-17] MEDS ORDERED: NITROGLYCERIN 2% OINTMENT 30GM TUBE EXT STA (21:28)
[2020-10-17] MEDS ORDERED: lisinopril 5 MG TAB PO ONE ×2 (21:42→23:05)
--- NOTE | 2020-10-17 22:20 | History & Physical Report ---
Date of Service October 17, 2020 Assessment & Plan (1) Chest pain: With palpitations Likely secondary to hypertensive crisis Rule out ACS given nitro relief and risk factors for ischemic heart disease asthma, stable anxiety/mood disorder, at baseline JOEL on CPAP PCU Titrate home BP meds Trend troponin Aspirin for CAD prevention until ACS ruled out N.p.o. after midnight until patient seen by Cardiology in a.m. in anticipation of any procedure DVT prophylaxis per Lovenox subcu Full code Text document was generated using [employer] voice recognition software. It may contain grammatical or spelling errors. Kindly contact undersigned for clarification of any documentation item in question. History of Present Illness Chief Complaint: Chest pressure, palpitations Primary Care Provider: Adarsh Ham PA-C History obtained from patient and records. Medical history significant for hypertension, asthma, anxiety/mood disorder status post ECT, GERD, JOEL on CPAP. Last confinement 2012 at the behavioral health unit for depression. Patient seen at PCPs office 2 weeks ago for elevated BP with some dizziness. SBP at time of visit was 140s. No unusual stress at home. Patient denies dietary indiscretion, OTC NSAID intake. Compliant with CPAP. Patient prior lisinopril medication resumed. Last week, patient consulted [facility] ER for headache and arm tingling. BP 179/90 at that time as per patient. Serum sodium noted to be low during ER visit as per patient. SBP 130-140s since discharge from ER. This afternoon, patient was just sitting down when she experienced left-sided chest pressure with palpitations with transient headache symptoms. No cough, no S OB. Chest pain different from GERD attack as per patient. SBP 180s at home as per patient. SBP to 220s at the highest upon arrival at the ER. Patient given labetalol. At the ER, chest pain relieved by Nitropaste, Toradol, and Famotidine administration. Medical History as above Surgical History : Appendectomy, dental surgery, hemorrhoidectomy Family History : Unknown as patient was adopted Personal/Social history : Non-smoker, occasional EtOH intake, homemaker Allergies Allergy/AdvReac Type Severity Reaction Status Date / Time No Known Allergies Allergy Verified 10/17/20 19:08 Home Medications Medication Instructions Recorded Confirmed Type fqcpgqsi-nzhf-CJ-calcium-mins 1 tab PO DAILY #0 09/06/17 10/17/20 History [Women's One Daily] aripiprazole [Abilify] 5 mg PO DAILY 10/17/20 10/17/20 History lisinopril 5 mg PO DAILY 10/17/20 10/17/20 History metoprolol succinate 25 mg PO DAILY 10/17/20 10/17/20 History vortioxetine [Trintellix] 5 mg PO DAILY 10/17/20 10/17/20 History Past Med/Surg History Medical History (Updated 10/17/20 @ 22:45 by Ayaan Hooper MD) Depression Hypertension Surgical History No significant past surgical history Family History Other No significant family history Social History Smoking Status: Never smoker Preferred Language: Finnish marital status: Single current occupational status: unemployed Feels Safe at Home: Yes Review of Systems Review of Systems: As per HPI, all 10 systems reviewed, all other ROS negative Physical Exam Physical Exam: GENERAL: Comfortable, pleasant, obese, no respiratory distress SKIN: Normal color, warm HEENT: Bespectacled, pink palpebral conjunctivae, no ptosis, dry buccal mucosa NECK : Supple, short neck, no tenderness CHEST : CTA, no tenderness HEART : RRR, no obvious murmurs ABDOMEN: Some distention, nontender EXTREMITIES : Minimal LE swelling, no LE tenderness, no other conspicuous deformities noted NEUROLOGIC : Coherent, no facial asymmetry, no other gross focality Results & Data Results & Data ([facility]) Vital Signs (Past 12 Hours) Vital Signs Temp Pulse Resp BP Pulse Ox 10/17/20 22:12 73 23 173/91 H 97 10/17/20 22:10 73 32 H 98 10/17/20 22:00 72 30 H 200/109 H 98 10/17/20 21:53 79 26 H 182/117 H 98 10/17/20 21:50 74 29 H 96 10/17/20 21:42 76 24 10/17/20 21:30 193/121 H 10/17/20 21:22 202/108 H 10/17/20 21:10 83 27 H 100 10/17/20 21:00 82 18 225/128 H 100 10/17/20 20:50 82 29 H 99 10/17/20 20:40 74 23 99 10/17/20 20:31 90 19 222/108 H 100 10/17/20 20:30 85 21 100 10/17/20 20:20 79 36 H 98 10/17/20 20:10 83 34 H 99 10/17/20 20:00 78 14 179/105 H 99 10/17/20 19:50 84 33 H 99 10/17/20 19:40 77 28 H 99 10/17/20 19:30 74 26 H 173/110 H 100 10/17/20 19:23 77 20 99 10/17/20 19:10 78 20 99 10/17/20 19:00 83 23 202/113 H 99 10/17/20 18:50 78 13 97 10/17/20 18:47 79 99 10/17/20 18:30 85 19 198/123 H 98 10/17/20 18:21 99 10/17/20 18:15 36.6 C 83 18 219/120 H 97 Laboratory Results Laboratory Results WBC 13.28 K/uL (4.8-10.8) H 10/17/20 18:39 RBC 4.14 M/uL (4.2-5.4) L 10/17/20 18:39 Hgb 12.3 g/dL (12.0-16.0) 10/17/20 18:39 Hct 37.5 % (37-47) 10/17/20 18:39 MCV 90.6 fL (80-100) 10/17/20 18:39 MCH 29.7 pg (25-34) 10/17/20 18:39 MCHC 32.8 g/dL (32-36) 10/17/20 18:39 RDW Std Deviation 49.2 fL (36.4-46.3) H 10/17/20 18:39 RDW Coeff of Rigoberto 14.7 % (11.5-14.5) H 10/17/20 18:39 Plt Count 235 K/uL (130-400) 10/17/20 18:39 MPV 10.5 fL (7.4-10.4) H 10/17/20 18:39 Immature Gran % (Auto) 0.2 % 10/17/20 18:39 Neut % (Auto) 66.4 % 10/17/20 18:39 Lymph % (Auto) 28.2 % 10/17/20 18:39 [place] % (Auto) 4.5 % 10/17/20 18:39 Eos % (Auto) 0.5 % 10/17/20 18:39 Baso % (Auto) 0.2 % 10/17/20 18:39 Neut # (Auto) 8.83 K/uL (1.4-6.5) H 10/17/20 18:39 Lymph # (Auto) 3.75 K/uL (1.2-3.4) H 10/17/20 18:39 [place] # (Auto) 0.60 K/uL (0.11-0.59) H 10/17/20 18:39 Eos # (Auto) 0.06 K/uL (0-0.5) 10/17/20 18:39 Baso # (Auto) 0.02 K/uL (0-0.2) 10/17/20 18:39 Immature Gran # (Auto) 0.02 K/uL (0.00-0.02) 10/17/20 18:39 D-Dimer 300 ug/L FEU (0-500) 10/17/20 19:08 Sodium 139 mmol/L (136-145) 10/17/20 18:39 Potassium 3.6 mmol/L (3.5-5.1) 10/17/20 18:39 Chloride 108 mmol/L (98-107) H 10/17/20 18:39 Carbon Dioxide 24 mmol/L (21-32) 10/17/20 18:39 Anion Gap 7.0 (3-11) 10/17/20 18:39 BUN 19 mg/dl (7-18) H 10/17/20 18:39 Creatinine 0.81 mg/dl (0.6-1.2) 10/17/20 18:39 Est Cr Clr Drug Dosing Not Reportable 10/17/20 18:39 Est GFR ( Amer) 109.1 ml/min 10/17/20 18:39 Est GFR (Non-Af Amer) 94.1 ml/min 10/17/20 18:39 BUN/Creatinine Ratio 22.8 (10-20) H 10/17/20 18:39 Glucose 102 mg/dl (70-99) H 10/17/20 18:39 Calcium 8.8 mg/dl (8.5-10.1) 10/17/20 18:39 Magnesium 2.2 mg/dl (1.8-2.4) 10/17/20 18:39 Total Bilirubin 0.2 mg/dl (0.2-1) 10/17/20 18:39 AST 15 U/L (15-37) 10/17/20 18:39 ALT 32 U/L (12-78) 10/17/20 18:39 Alkaline Phosphatase 70 U/L (45-117) 10/17/20 18:39 Troponin I < 0.015 ng/ml (0-0.045) 10/17/20 18:39 NT-Pro-B Natriuret Pep 62 pg/ml (0-450) 10/17/20 18:39 Total Protein 7.3 gm/dl (6.4-8.2) 10/17/20 18:39 Albumin 3.4 gm/dl (3.4-5.0) 10/17/20 18:39 Globulin 3.9 gm/dl (2.5-4.0) 10/17/20 18:39 Albumin/Globulin Ratio 0.9 (0.9-2) 10/17/20 18:39 TSH 1.580 uIu/ml (0.300-4.500) 10/17/20 18:39 Lyme Disease IgG Ab Negative (Negative) 10/17/20 18:39 Lyme Disease IgM Ab Negative (Negative) 10/17/20 18:39 Impressions Chest X-Ray 10/17/20 18:22 XR chest 1V portable CLINICAL HISTORY: palpitations COMPARISON STUDY: July 05, 2019 FINDINGS: No pneumothorax. No pleural effusion. No large infiltrates or consolidative lesions are seen. Lung volumes are decreased with crowded lung markings. Cardiomediastinal silhouette is within normal limits in size. No significant pulmonary vascular congestion.. Osseous structures: unremarkable IMPRESSION: 1. No acute pulmonary process. Limited evaluation due to low inspiratory effort. ACT 112: Negative or not required by law. The above report was generated using voice recognition software. It may contain grammatical, syntax or spelling errors. Electronically signed by: Adrienne Billy DO 10/17/2020 7:[address] head initial read: No prior exam for comparison. No ICH, mass-effect or edema. No evidence of acute cortical stroke. No space-occupying lesion. Visualized sinuses and mastoid air cells are clear. EKG as per my interpretation rate 75, NSR, normal axis, 1 AVB, no ischemia
[2020-10-17 22:22] LABS: Pregnancy Test, Serum Negative (Negative)
[2020-10-17 22:43] LABS: Partial Thromboplastin Ratio 0.9; Partial Thromboplastin Time 22.4 Seconds (21.0-31.0)
[2020-10-17 22:56] LABS: Appearance Urine Clear (Clear); Bilirubin Urine Negative (Negative); Blood Urine Negative (Negative); Color Urine Yellow; Glucose Urine UA Negative (Negative); Ketones Urine Negative (Negative); Leukocyte Esterase Urine Negative (Negative); Nitrite Urine Negative (Negative); Protein Urine Negative (Negative); Specific Gravity Urine 1.022 (1.000-1.030); Urobilinogen Urine Negative (Negative); pH Urine 5.5 (4.5-7.5)
[2020-10-17] MEDS ORDERED: hydrALAZINE HCL 20 MG/ML VIAL IV ONE (23:13)
[2020-10-17 23:42] LABS: Amphetamines+Metham, Urine Neg (Neg); Barbiturates, Urine Neg (Neg); Benzodiazepine, Urine Neg (Neg); Cocaine, Urine Neg (Neg); MDMA (Ecstacy), Urine Neg (Neg); Methadone, Urine Neg (Neg); Opiate, Urine Neg (Neg); Phencyclidine, Urine Neg (Neg)
[2020-10-17] MEDS ORDERED: ASPIRIN 325 MG ECTAB PO SCH (23:50)
[2020-10-17] MEDS ORDERED: ASPIRIN 81 MG ECTAB PO SCH (23:50)
[2020-10-18] MEDS ORDERED: PROMETHAZINE HCL 12.5 MG in SODIUM CHLORIDE 0.9% 50 ML IV PRN (00:58)
[2020-10-18] MEDS ORDERED: MoRPHine SULFATE 4 MG/ML 1 ML CARP\\VIAL IV PRN (00:58)
[2020-10-18] MEDS ORDERED: LORazepam 0.5 MG/1 ML VIAL IV PRN (00:58)
[2020-10-18] MEDS ORDERED: ACETAMINOPHEN 325 MG TAB PO PRN (00:58)
[2020-10-18] MEDS ORDERED: traMADol HCL 50 MG TABLET PO PRN (00:58)
[2020-10-18] MEDS ORDERED: NSS + 20MEQ KCL 20 MEQ/1,000 ML BAG IV SCH (01:30)
[2020-10-18 05:37] LABS: Basophils # (auto) 0.01 K/uL (0-0.2); Basophils % (auto) 0.1 %; Eosinophils # (auto) 0.08 K/uL (0-0.5); Eosinophils % (auto) 0.9 %; Hemoglobin 10.9 g/dL (12.0-16.0); Immature Granulocytes # (auto) 0.02 K/uL (0.00-0.02); Immature Granulocytes % (auto) 0.2 %; Lymphocytes # (auto) 3.42 K/uL (1.2-3.4); Lymphocytes % (auto) 38.5 %; Mean Corpuscular Hemoglobin 29.5 pg (25-34); Mean Corpuscular Hgb Conc 32.1 g/dL (32-36); Mean Corpuscular Volume 92.1 fL (80-100); Mean Platelet Volume 10.2 fL (7.4-10.4); Monocytes # (auto) 0.36 K/uL (0.11-0.59); Monocytes % (auto) 4.1 %; Neutrophils # (auto) 4.99 K/uL (1.4-6.5); Neutrophils % (auto) 56.2 %; Platelet Count 228 K/uL (130-400); RDW Standard Deviation 50.5 fL (36.4-46.3); Red Blood Count 3.69 M/uL (4.2-5.4); White Blood Count 8.88 K/uL (4.8-10.8)
[2020-10-18 05:55] LABS: Partial Thromboplastin Ratio 0.9; Partial Thromboplastin Time 23.4 Seconds (21.0-31.0)
[2020-10-18 06:28] LABS: BUN Creatinine Ratio 21.1 (10-20); Creatinine Clr Calc Pharmacy 151.3 ml/min; Est GFR (African American) 123.7 ml/min; Est GFR (Non-African American) 106.7 ml/min; Potassium 4.1 mmol/L (3.5-5.1)
--- NOTE | 2020-10-18 07:24 | CT Scan Report ---
CT SCAN OF THE BRAIN WITHOUT IV CONTRAST CLINICAL HISTORY: Headache. COMPARISON STUDY: No priors. TECHNIQUE: Unenhanced axial CT scan of the brain is performed from the vertex to the skull base. A d ose lowering technique was utilized adhering to the principles of ALARA. CT DOSE: 773.57 mGy.cm FINDINGS: Brain parenchyma: The brain parenchyma is normal in appearance. There is no hemorrhage, mass effect, or evidence of acute territorial ischemia by CT criteria. Darby-white matter differentiation is preser isabel. No extra-axial fluid collection is seen. Ventricles, sulci, cisterns: Normal in configuration. Intracranial vasculature: The visualized intracranial vasculature at the skull base is normal in appe arance. Calvarium: Unremarkable. Sinuses and mastoids: The visualized paranasal sinuses are clear. The mastoid air cells are well pneu matized. Orbits: The bony orbits are grossly intact. IMPRESSION: No acute intracranial abnormality. ACT 112: Negative or not required by law. Electronically signed by: Ludwin Andrews M.D. 10/18/2020 7:23 AM
[2020-10-18] MEDS ORDERED: lisinopril 10 MG TAB PO SCH (09:00)
[2020-10-18] MEDS ORDERED: ENOXAPARIN INJ 40 MG/0.4 ML SYR SQ SCH (09:00)
[2020-10-18] MEDS ORDERED: ARIPiprazole 5 MG TAB PO SCH (09:00)
[2020-10-18] MEDS ORDERED: CEROVITE ADV FORMULA TAB PO SCH (09:00)
[2020-10-18] MEDS: METOPROLOL SUCC 25MG EXT REL TAB PO SCH ×2 (09:40→12:08)
--- NOTE | 2020-10-18 10:21 | Cardiology Consultation ---
Date of Consultation October 18, 2020 Assessment & Plan (1) Chest pain: (2) Palpitation: (3) Hypertension: 35-year-old female presents to the emergency department with palpitations and associated chest discomfort. Cardiac enzymes negative. Resting ECG without ischemic changes. Telemetry reviewed overnight demonstrating sinus rhythm without sustained dysrhythmia or ectopy. Previous evaluation for similar symptoms noted above. Her blood pressure has trended down to normal range overnight. I suspect there is an anxiety component driving her elevated blood pressures. Recommend exercise stress echo for further evaluation/stratification. If stress testing within normal limits. Consider addition of as needed anxiolytics as per internal medicine. Thank you for allow me to participate in the care of your patient. History of Present Illness Reason for Consultation: Chest pain, elevated blood pressure Requesting Physician: Dr. Maciel Attending Physician: Britany Maciel MD History of Present Illness 35-year-old female presents to the emergency department with palpitations and chest discomfort. Reports recent ER evaluation in [place] for similar symptoms. Blood pressure markedly elevated on presentation. Patient reports feeling of "skipped beats" followed by chest discomfort. Discomfort described as mild to moderate in intensity. There is no radiation. Denies any exertional chest discomfort or unusual shortness of breath. Active regularly and hiking. She was scheduled to participate in a 10 mile hike this weekend. Denies orthopnea, PND, or lower extremity edema. No lightheadedness, dizziness, syncope, or near syncope. Voices concern regarding elevated blood pressure readings. Blood pressure markedly improved this a.m. Telemetry reveals sinus rhythm without sustained dysrhythmia. No significant ectopy. Previous evaluat ions for similar symptoms including stress testing and Holter monitor unremarkable. Allergies Allergy/AdvReac Type Severity Reaction Status Date / Time No Known Allergies Allergy Verified 10/17/20 19:08 Home Medications Medication Instructions Recorded Confirmed Type sklnshfh-aqot-BF-calcium-mins 1 tab PO DAILY #0 09/06/17 10/17/20 History [Women's One Daily] aripiprazole [Abilify] 5 mg PO DAILY 10/17/20 10/17/20 History lisinopril 5 mg PO DAILY 10/17/20 10/17/20 History metoprolol succinate 25 mg PO DAILY 10/17/20 10/17/20 History vortioxetine [Trintellix] 5 mg PO DAILY 10/17/20 10/17/20 History Patient History Medical History (Updated 10/18/20 @ 10:19 by Yuniel Mantilla DO) Depression Hypertension Surgical History No significant past surgical history Family History Other No significant family history Social History Smoking Status: Never smoker Hx Alcohol Use: Yes Alcohol type: hard liquor Hx Substance Use: No Preferred Language: Jordanian Communication Ability: Effective Care Clinician Required: No Beliefs That Will Affect Care: None marital status: Single Current Living Situation: Spouse and Family Current Living Situation Comment: Lives with boyfreind and child current occupational status: unemployed Other Information That Helps Us Care for You: No Feels Safe at Home: Yes Safety Concerns: Feels Safe At This Time Assistive Devices: Glasses Review of Systems Review of Systems: All systems reviewed & are unremarkable except as noted in Subjective Physical Exam Constitutional: well developed, well nourished and + obese Respiratory: normal respiratory effort; no respiratory distress and no labored breathing Auscultation: no crackles, no rales, no rhonchi and no wheezes Cardiovascular: Heart Sounds: normal S1 and normal S2; no gallop, no murmur and no cardiac rub Palpation: normal PMI Vessels: dorsalis pedis pulses present and radial pulses present; no JVD Extremities: no edema Gastrointestinal (Abdomen): Inspection/Auscultation: normal bowel sounds; abdomen not distended and no abdominal edema Percussion/Palpation: abdomen soft; abdomen nontender, no guarding and abdomen not rigid Neurologic: CN's II-XI intact bilaterally and moves all extremities; no focal motor deficits Motor/Sensory: no tremor Psychiatric: Orientation: alert and oriented x 3 Affect: + anxious affect Results & Data ([facility]) Vital Signs (Past 12 Hours) Vital Signs Temp Pulse Pulse Resp BP BP Pulse Ox 10/18/20 08:30 55 L 10/18/20 07:58 36.9 C 74 16 124/72 96 10/18/20 06:08 105/59 L 10/18/20 03:23 36.5 C 66 18 114/58 L 97 10/18/20 00:51 36.4 C L 69 16 142/75 H 96 10/18/20 00:00 69 19 158/87 H 95 10/17/20 23:30 70 17 158/88 H 98 10/17/20 23:18 72 21 162/90 H 97 10/17/20 22:50 75 15 97 10/17/20 22:40 75 30 H 97 10/17/20 22:30 74 21 204/111 H 97 10/17/20 22:20 72 21 97 10/17/20 22:12 73 23 173/91 H 97 10/17/20 22:10 73 32 H 98 Diagnostic Findings Exercise stress echo report summary 07/07/2019: The stress echo is negative for inducible ischemia. Exercise capacity is average . The stress EKG response showed no evidence of ischemia. Resting Study: The qualitative LV ejection fraction is 55-59% (normal). The left ventricular diastolic function is normal. No significant valvular disease is present. Compared to resting echocardiogram report dated September 01, 2017: There is no significant change. Compared to exercise stress ECHO performed July 04, 2015, exercise capacity has decreased by 1 minutes and 15 seconds. 24-hour Holter monitor report 07/04/2015: 1. Duration - 24 hours 2. Quality - good 3. Dominant rhythm - sinus 4. PACs - none 5. PVCs - none The rhythm throughout the monitoring period was sinus. No arrhythmias. No ectopy. Multiple patient reports of chest pain which correlated with sinus rhythm. (1) Chest pain Chest pain type: precordial pain Qualified Code(s): R07.2 - Precordial pain (2) Hypertension Hypertension type: essential hypertension Qualified Code(s): I10 - Essential (primary) hypertension
--- NOTE | 2020-10-18 12:45 | Hospitalist Progress Note ---
Date of Service October 18, 2020 Assessment & Plan (1) Chest pain: Present on admission with chest pain associated with SOB Possible related to anxiety, but need to r/o ACS CXR on admission showed no acute finding Troponin x 3 negative EKG showed no ischemic changes Stress echo done today negative Cardiology on board Case discussed with cardiology and ok to discharge home from cardiology standpoint Hypertensive urgency BP on admission 225/117 Mostly related to anxiety during the hospital setting Received Labetalol IV 10mg in the ER Lisinopril increased to 10mg daily BP improved Continue monitor BP Asthma Stable Anxiety/mood disorder Continue Trintellix and Abilify JOEL On CPAP DVT px on Lovenox subq Code status Full code Disposition Will discharge home today Admission and Anticipated Discharge Date Admission Date: October 17, 2020 Subjective Pt was seen and examined for follow up of chest pain Lying in bed with no distress watching TV Pt said that she feels much better She said that she does not have any chest pain cow She said that she feels way better after eating Denies any chest pain, palpitation, dizziness and SOB Review of Systems Review of Systems: All systems reviewed & are unremarkable except as noted in Subjective Physical Exam Physical Exam: General- No acute distress Head- atraumatic Eyes- PERRL, EOMI, ENT- oropharynx clear Neck- supple, no JVD Lungs- clear to auscultation Heart- regular rhythm; no murmur Abdomen- normal bowel sounds, soft, nontender Extremities- no calf tenderness Neuro- alert, oriented x 3; PERRL, EOMI; no facial palsy; no dysarthria Skin- warm & dry Results & Data Results & Data ([facility]) Vital Signs (Past 12 Hours) Vital Signs Temp Pulse Pulse Resp BP Pulse Ox 10/18/20 12:10 36.8 C 73 18 138/83 95 10/18/20 08:30 55 L 10/18/20 07:58 36.9 C 74 16 124/72 96 10/18/20 06:08 105/59 L 10/18/20 03:23 36.5 C 66 18 114/58 L 97 10/18/20 00:51 36.4 C L 69 16 142/75 H 96 (1) Chest pain Chest pain type: precordial pain Qualified Code(s): R07.2 - Precordial pain
--- NOTE | 2020-10-18 16:52 | Electrocardiogram Report ---
Test Reason : Blood Pressure : / mmHG Vent. Rate : 077 BPM Atrial Rate : 077 BPM P-R Int : 234 ms QRS Dur : 076 ms QT Int : 380 ms P-R-T Axes : 042 018 059 degrees QTc Int : 430 ms Poor data quality, interpretation may be adversely affected Sinus rhythm with 1st degree A-V block Otherwise normal ECG When compared with ECG of 05-JUL-2019 09:22, No significant change was found Confirmed by Sean Pino ([id number]) on 10/18/2020 4:52:19 PM Referred By: REFERRED SELF Confirmed By:Delta Pino
--- NOTE | 2020-10-18 16:59 | Electrocardiogram Report ---
Test Reason : Blood Pressure : / mmHG Vent. Rate : 057 BPM Atrial Rate : 057 BPM P-R Int : 264 ms QRS Dur : 084 ms QT Int : 450 ms P-R-T Axes : 034 007 037 degrees QTc Int : 438 ms Sinus bradycardia with 1st degree A-V block Otherwise normal ECG When compared with ECG of 17-OCT-2020 18:25, (unconfirmed) No significant change was found Confirmed by Sean Pino ([id number]) on 10/18/2020 4:59:20 PM Referred By: REFERRED SELF Confirmed By:Delta Pino
[2020-10-18] MEDS ORDERED: ASPIRIN 81 MG ECTAB PO SCH (23:50)
--- NOTE | 2020-10-21 08:48 | Discharge Summary ---
Date of Service October 18, 2020 Admission HPI Per Admitting Provider History obtained from patient and records. Medical history significant for hypertension, asthma, anxiety/mood disorder status post ECT, GERD, JOEL on CPAP. Last confinement [facility] at the behavioral [facility] for depression. Patient seen at PCPs office 2 weeks ago for elevated BP with some dizziness. SBP at time of visit was 140s. No unusual stress at home. Patient denies dietary indiscretion, OTC NSAID intake. Compliant with CPAP. Patient prior lisinopril medication resumed. Last week, patient consulted [facility] ER for headache and arm tingling. BP 179/90 at that time as per patient. Serum sodium noted to be low during ER visit as per patient. SBP 130-140s since discharge from ER. This afternoon, patient was just sitting down when she experienced left-sided chest pressure with palpitations with transient headache symptoms. No cough, no S OB. Chest pain different from GERD attack as per patient. SBP 180s at home as per patient. SBP to 220s at the highest upon arrival at the ER. Patient given labetalol. At the ER, chest pain relieved by Nitropaste, Toradol, and Famotidine administration. Medical History as above Surgical History : Appendectomy, dental surgery, hemorrhoidectomy Family History : Unknown as patient was adopted Personal/Social history : Non-smoker, occasional EtOH intake, homemaker Admission Exam Per Admitting Provider GENERAL: Comfortable, pleasant, obese, no respiratory distress SKIN: Normal color, warm HEENT: Bespectacled, pink palpebral conjunctivae, no ptosis, dry buccal mucosa NECK : Supple, short neck, no tenderness CHEST : CTA, no tenderness HEART : RRR, no obvious murmurs ABDOMEN: Some distention, nontender EXTREMITIES : Minimal LE swelling, no LE tenderness, no other conspicuous deformities noted NEUROLOGIC : Coherent, no facial asymmetry, no other gross focality Principal Diagnosis Chest pain Hypertensive urgency Asthma Anxiety/mood disorder JOEL Discharge Exam General- No acute distress Head- atraumatic Eyes- PERRL, EOMI, ENT- oropharynx clear Neck- supple, no JVD Lungs- clear to auscultation Heart- regular rhythm; no murmur Abdomen- normal bowel sounds, soft, nontender Extremities- no calf tenderness Neuro- alert, oriented x 3; PERRL, EOMI; no facial palsy; no dysarthria Skin- warm & dry Discharge Data Allergies Allergy/AdvReac Type Severity Reaction Status Date / Time No Known Allergies Allergy Verified 10/17/20 19:08 Consultations 10/17/20 21:33 ED Decision to Admit Stat 10/18/20 00:58 Consult Cardiology Routine Ordered Studies 10/17/20 22:18 CT head/brain wo con Urgent CT SCAN OF THE BRAIN WITHOUT IV CONTRAST CLINICAL HISTORY: Headache. COMPARISON STUDY: No priors. TECHNIQUE: Unenhanced axial CT scan of the brain is performed from the vertex to the skull base. A dose lowering technique was utilized adhering to the principles of ALARA. CT DOSE: 773.57 mGy.cm FINDINGS: Brain parenchyma: The brain parenchyma is normal in appearance. There is no hemorrhage, mass effect, or evidence of acute territorial ischemia by CT criteria. Darby-white matter differentiation is preserved. No extra-axial fluid collection is seen. Ventricles, sulci, cisterns: Normal in configuration. Intracranial vasculature: The visualized intracranial vasculature at the skull base is normal in appearance. Calvarium: Unremarkable. Sinuses and mastoids: The visualized paranasal sinuses are clear. The mastoid air cells are well pneumatized. Orbits: The bony orbits are grossly intact. IMPRESSION: No acute intracranial abnormality. ACT 112: Negative or not required by law. Electronically signed by: Ludwin Andrews M.D. 10/18/2020 7:23 AM Dictated: 10/18/20720Transcribed: 10/18/20720 XR chest 1V portable CLINICAL HISTORY: palpitations COMPARISON STUDY: July 05, 2019 FINDINGS: No pneumothorax. No pleural effusion. No large infiltrates or consolidative lesions are seen. Lung volumes are decreased with crowded lung markings. Cardiomediastinal silhouette is within normal limits in size. No significant pulmonary vascular congestion.. Osseous structures: unremarkable IMPRESSION: 1. No acute pulmonary process. Limited evaluation due to low inspiratory ef fort. ACT 112: Negative or not required by law. The above report was generated using voice recognition software. It may contain grammatical, syntax or spelling errors. Electronically signed by: Adrienne Billy DO 10/17/2020 7:32 PM Dictated: 10/17/201930Transcribed: 10/17/201930 Hospital Course (1) Chest pain: Present on admission with chest pain associated with SOB Possible related to anxiety, but need to r/o ACS CXR on admission showed no acute finding Troponin x 3 negative EKG showed no ischemic changes Stress echo done today negative Cardiology on board Case discussed with cardiology and ok to discharge home from cardiology standpoint Hypertensive urgency BP on admission 225/117 Mostly related to anxiety during the hospital setting Received Labetalol IV 10mg in the ER Lisinopril increased to 10mg daily BP improved Continue monitor BP Asthma Stable Anxiety/mood disorder Continue Trintellix and Abilify JOEL On CPAP DVT px on Lovenox subq Code status Full code Disposition Will discharge home today Total Time Total Time Spent Total Time Spent (In Minutes): 35 minutes Total Time Includes: Examination of the Patient, Discharge Planning, Medication Reconciliation, Communication With Other Providers and Other Discharge Plan Discharge Items Patient Disposition: Home - Self-Care Reason For Visit: HYPERTENSION Discharge Diagnosis: Chest pain Activity: Resume your previous activity Non-emergency contact: Primary Care Provider Call non-emergency contact if: you have any medication questions Follow-up/Referrals: Adarsh Ham PA-C [Primary Care Provider] - (Date & Time 10/24/2020 3:20 PM Provider Adarsh Ham PA-C Department [facility] ) Diet: Heart Healthy Add Attending Provider Instructions: Follow up with your primary care provider Adarsh Ham PA-C on 10/24/2020 at 3:20 PM at the [facility] Continue monitor your blood pressure and bring your blood pressure log at your next appointment with your provider Follow a low salt diet Lisinopril increased to 10mg daily Pending Studies at Discharge: No Stand-Alone Forms: My [employer], Smoking Cessation Medications and DC Order Prescriptions: New lisinopril 10 mg Tablet 10 mg PO DAILY Qty: 30 RF: 0 Continued Women's One Daily 18 mg iron-400 mcg-500 mg Ca Tablet 1 tab PO DAILY Qty: 0 RF: 0 metoprolol succinate 25 mg Tablet Extended Release 24 Hr 25 mg PO DAILY RF: 0 aripiprazole [Abilify] 5 mg Tablet 5 mg PO DAILY RF: 0 Trintellix 5 mg tablet 5 mg PO DAILY RF: 0 Discontinued lisinopril 5 mg tablet 5 mg PO DAILY RF: 0 Discharge Orders: Discharge Order (Routine); Ordered 10/18/20 Ordered By: Britany Maciel Admission Data Admit Date/Time: 10/17/20 23:50 Attending Provider: Britany Maciel Admit Provider: Ayaan Hooper Primary Care Provider: Adarsh Ham Other Providers: Ayaan Hooper ; Timmy Le ; Merrick Pagan ; Randy Boyd ; Yuniel Mantilla ; Josue Joseph ; Kimo Locke ; Salud Heaton ; Silvia Nathan ; Radha Temple ; Lamont Nava Other Interventions: Discharge Summary Assessment (RN) Last Done: 10/18/20 12:44
== END 2020-10-18 14:30 | disposition home or self-care (01) | DRG 305 ==
LOC: ED 18:14 → 2S 23:50